=== PATIENT | female | born 1985 | race Caucasian/White ===

== ENCOUNTER 2017-03-20 23:37 | Emergency (ER) | payer SELFPAY ==
[~2017-03-20] VITALS: Ht 172.7 cm; Wt 65.5 kg
[2017-03-21 00:23] VITALS: BP 124/80
[2017-03-21] MEDS ORDERED: LORazepam 1MG TABLET PO ONE (00:30)
[2017-03-21] MEDS ORDERED: LORazepam 1MG TABLET ONE (00:36)
[2017-03-21 00:46] LABS: DAU SCREEN DISCLAIMER; HCG UR LOT HCG7030192
[2017-03-21 00:48] LABS: HEMATOCRIT 41.1 % (34.6-47.8); HEMOGLOBIN 13.8 g/dL (11.7-16.4)
[2017-03-21 01:00] LABS: ASPARTATE AMINO TRANSFERASE 20 U/L (15-37); BLOOD UREA NITROGEN 7 mg/dL (7-18)
[2017-03-21 01:04] LABS: HCG UR OBC PASS
== END 2017-03-21 01:51 | disposition home or self-care (01) ==
LOC: ED 23:59
DX: M79.652 Pain in left thigh (principal); F15.10 Other stimulant abuse, uncomplicated; F17.210 Nicotine dependence, cigarettes, uncomplicated
CPT/HCPCS: 36415; 80053; 80307; 81001; 81025; 85025; 99284; G0479